=== PATIENT | female | born 1975 | race Caucasian/White ===

== ENCOUNTER 2022-01-01 15:26 | Emergency (ER) | payer MEDICAID ==
[~2022-01-01] VITALS: Ht 165.1 cm; Wt 69.0 kg
[2022-01-01 15:32] VITALS: BP 152/81
== END 2022-01-01 17:26 | disposition left against medical advice (07) ==
LOC: ER 15:26
DX: Z53.21 Procedure and treatment not carried out due to patient leaving prior to being seen by health care provider (principal)

== ENCOUNTER 2024-09-21 19:51 | Emergency (ER) | payer MEDICAID ==
[~2024-09-21] VITALS: Ht 160 cm; Wt 64.0 kg
[2024-09-21 19:54] VITALS: O2SAT 96
[2024-09-21] MEDS: ONDANSETRON 4MG ODT PO ONE (20:36)
[2024-09-22 01:39] VITALS: BP 102/58; PULSE 55; RESP 18; TEMP 36.72516; O2SAT 96
== END 2024-09-22 01:43 | disposition home or self-care (01) ==
LOC: ER 19:51
DX: F10.129 Alcohol abuse with intoxication, unspecified (principal); Y90.9 Presence of alcohol in blood, level not specified
CPT/HCPCS: 99283; Q0162; Z7610